=== PATIENT | male | born 1950 | race Caucasian/White ===

== ENCOUNTER 2022-12-03 10:46 | Outpatient (REF) | payer MEDICARE, SELFPAY ==
[2022-12-03 11:36] LABS: Cholesterol* 227 mg/dL (90-199); Glucose* 97 mg/dL (60-115)
[2022-12-03 11:37] LABS: HDL Cholesterol* 74 mg/dL (>=40); LDL Cholesterol Calculated 139 mg/dL (<100); Triglycerides* 69 mg/dL (40-149)
[2022-12-04 19:10] LABS: Sex Hormone Binding Globulin 111 nmol/L (19-76); Testosterone, Adult Male 1020 ng/dL (300-720); Testosterone, Free Calculation 91 pg/mL (47-244); Testosterone, Percentage Free 0.9 % (1.6-2.9)
== END 2022-12-03 10:47 | disposition home or self-care (01) ==
LOC: NPINS 10:46
PROVIDERS: PCP Internal Medicine
DX: N52.9 Male erectile dysfunction, unspecified (principal)
CPT/HCPCS: 80061; 82947; 84270; 84402; 84403

== ENCOUNTER 2022-12-18 12:42 | Emergency (ER) | payer MEDICARE, SELFPAY ==
[2022-12-18 12:47] VITALS: BP 135/76; PULSE 60; RESP 16; TEMP 36.2; O2SAT 99; BMI 24.7
--- NOTE | 2022-12-18 13:24 | ED.NURSE ---
[facility] Epidemiology Unit paged per MD request for guidelines on animal bite by rochelle.
--- NOTE | 2022-12-18 14:15 | ED.NURSE ---
RIG given to
[2022-12-18] MEDS: RABIES IMMUNE GLOBULIN 150 UNIT/ML INJ 1500 UNIT INFILTRATI (14:50)
[2022-12-18 15:05] VITALS: BP 135/76; PULSE 60; RESP 16; TEMP 36.2
--- NOTE | 2022-12-18 15:07 | ED.NURSE ---
injects 2mL of RIG into bite site. Per Dr. Pradhan, remainder 8mL of RIG should be given in divided doses IM. Vaccine and RIG given IM, as ordered. Pt tolerates well. Pt agrees to call clinic to make apts for follow up vaccine administrations for days 3, 7, 14. Calender provided to Pt and reviewed extensively which days are needed for vaccine administrations. Copy of Rx for repeat Rabies vaccines provided to Pt to bring to clinic apts. Copy of Rx scanned into medical record.
--- NOTE | 2022-12-19 00:53 | ED.ANIMALBIT ---
HPI - Animal Bite General Chief Complaint: Animal Bite Stated Complaint: animal bite last week [place] Time Seen by Provider: 12/18/22 12:50 History of Present Illness HPI narrative: 72-year-old man presenting to the emergency department after sustaining a bite to his left index finger by a young lemur in a zoo in [facility]. It sounds as though this is somewhat of a petting zoo where animals were presented to guests. Lemsantino leapt from lap to lap and when landing on Mr. Munoz's lap, bit his finger. There has been no inflammation. No fever, no night sweats. Appears to have healed. Animals appeared to be quite healthy. Vaccinations status unknown. Mr. Munoz has tried to reach the zoo to inquire vaccine status or health of this rochelle but only able to leave voice mails. He presents here on recommendation by family Related Data Home Medications Medication Instructions Recorded Confirmed No Known Home Medications 12/18/22 12/18/22 Allergies Allergy/AdvReac Type Severity Reaction Status Date / Time No Known Drug Allergies Allergy Verified 12/18/22 12:52 Review of Systems Status of ROS: Reports: 6 or more systems reviewed and unremarkable except as noted in History and below PFSH PFS Social History Smoking Status: Never smoker Do you use any of these nicotine containing products: None Second hand tobacco smoke exposure: No How often do you have a drink containing alcohol: monthly or less How many standard drinks containing alcohol do you have on a typical day: 1 or 2 How often do you have six or more drinks on one occasion: Never AUDIT-C Alcohol total score: 1 Non-prescribed substance use: denies use service: No Exam Narrative: Exam Narrative: Pleasant. NAD. Slim. Well tanned. No swelling or inflammatory changes in the skin apparent. Cranial nerves 2-12 intact. Breathing easily. Examination of the left finger the site of the bite shows it to be well healed with opposing daniel on both radial and ulnar side of the finger on the middle phalanx. Scab on the ulnar side. Flexes and extends his finger without any difficulty. Const: Vital Signs, click to edit/add: Vital Signs - 24 hr 12/18/22 12:47 12/18/22 15:05 Temperature 97.1 F L 97.1 F L Pulse Rate [Pulse Oximeter] 60 60 Respiratory Rate 16 16 Blood Pressure [Ri ght Upper Arm] 135/76 135/76 Pulse Oximetry 99 Oxygen Delivery Me thod Room Air Documenting provider has reviewed patient's vital signs: yes Course Vital Signs Vital signs: Initial Vital Signs Temperature 97.1 F L 12/18/22 12:47 Temperature Source Temporal Artery Scan 12/18/22 12:47 Pulse Rate 60 12/18/22 12:47 Pulse Rhythm 12/18/22 12:47 Pulse Strength 3+ Normal 12/18/22 12:47 Respiratory Rate 16 12/18/22 12:47 Blood Pressure 135/76 12/18/22 12:47 Blood Pressure Mean 95 12/18/22 12:47 Blood Pressure Position Sitting 12/18/22 12:47 Pulse Oximetry 99 12/18/22 12:47 Oxygen Delivery Method 12/18/22 12:47 Vital Signs Temperature 97.1 F L 12/18/22 12:47 Pulse Rate 60 12/18/22 12:47 Respiratory Rate 16 12/18/22 12:47 Blood Pressure 135/76 12/18/22 12:47 Pulse Oximetry 99 12/18/22 12:47 Oxygen Delivery Method 12/18/22 12:47 Temperature 97.1 F L 12/18/22 15:05 Pulse Rate 60 12/18/22 15:05 Respiratory Rate 16 12/18/22 15:05 Blood Pressure 135/76 12/18/22 15:05 Pulse Oximetry 99 12/18/22 12:47 Oxygen Delivery Method 12/18/22 12:47 MDM - Animal Bite MDM Narrative Medical decision making narrative: I did try to reach out to the zoo as well. Unable to reach anybody. Did talk to [place] department of Health and recommendations are to proceed with immunoglobulin and rabies vaccine series. Mr. Munoz did have some concerns regarding vaccinations in general preferring a more ?natural? approach. We discussed pros and cons and risks/ consequences of rabies. Offered vaccine information. I discussed also with pharmacist. It appears that we would be unable to guarantee health of this animal at this time so will proceed with immunoglobulin and vaccination series I did inject total of 2 mL in digital block of sorts on the left index finger. Nursing injected else where the weight based dosing See patient departure for more information Discharge Plan Discharge Clinical Impression: Animal bite Patient Disposition: Home, Self-Care Condition: Stable Additional Instructions: Please follow-up for vaccines on days 3, 7, 14. Report fever, increasing headache, shortness of breath, numbness/weakness. Watch lemurs at a distance for now on [employer]. Prescriptions: No Action No Known Home Medications Follow Up/Referrals: Gilmer Portillo MD [Primary Care Provider] - Stand Alone Forms: Mobile [employer] Info Instructions
== END 2022-12-18 14:58 | disposition home or self-care (01) ==
PROVIDERS: Emergency Provider Family Medicine; PCP Internal Medicine
DX: S61.251A Open bite of left index finger without damage to nail, initial encounter (principal); W55.81XA Bitten by other mammals, initial encounter; Z20.3 Contact with and (suspected) exposure to rabies
CPT/HCPCS: 90377; 90471; 90675; 99283; 99284

== ENCOUNTER 2023-08-30 08:04 | Outpatient (CLI) | payer MEDICARE, SELFPAY ==
--- NOTE | 2023-08-30 08:15 | CRLHL7_ITS ---
For Patients: As a result of the Century Cures Act, medical imaging exams and procedure reports are released immediately into your electronic medical record. You may view this report before your referring provider. If you have questions, please contact your health care provider. Indication: SCIATICA LOW BACK PAIN AND LEG NUMBNESS Technique: Noncontrast sagittal and axial T1, T2, and sagittal STIR sequences are provided. Comparison: Radiographs 08/16/2023 Findings: There are 5 lumbar type vertebral bodies. No fractures. Degree of anterolisthesis at L5-S1. No prevertebral or paraspinal edema. No aggressive osseous lesions. The conus medullaris is normal in signal. Few small chronic Schmorl`s nodes at T11-12 through L1-2. Chronic bilateral L5 pars defects. Bilateral renal cysts. Fusion of the right sacroiliac joint. T12-L1: Mild disc bulge. No significant spinal canal stenosis or neural foramen narrowing. L1-2: Disc desiccation. No significant spinal canal stenosis or neural foramen narrowing. L2-3: Disc desiccation. No significant spinal canal stenosis or neural foramen narrowing. L3-4: Circumferential disc bulge with superimposed left paracentral disc extrusion with 1.2 cm inferior migration that results in severe left subarticular recess and lateral recess stenosis and impingement of the traversing left L4 nerve roots. Mild neural foramen narrowing bilaterally. L4-5: Mild posterior disc bulge and disc desiccation. No significant spinal canal stenosis. Mild left neural foramina narrowing. L5-S1: Grade 1 anterolisthesis. Chronic bilateral L5 pars defects. No spinal canal stenosis. Moderate neural foramen narrowing bilaterally. Impression: 1. No acute osseous or ligamentous abnormality. Chronic bilateral L5 pars defects. 2. At L3-4, left paracentral disc extrusion with inferior migration results in severe left subarticular recess and lateral recess stenosis and impingement of the traversing left L4 nerve roots. Mild neural foramen narrowing bilaterally. 3. At L4-5, mild left neural foramen narrowing. 4. At L5-S1, moderate bilateral neural foramen narrowing. Dictated by Jake Baer MD @ 08/30/2023 9:38:03 AM (Electronically Signed)
== END 2023-08-30 08:05 | disposition home or self-care (01) ==
LOC: MRI 08:05
PROVIDERS: PCP Internal Medicine; Visit Provider Internal Medicine
DX: M54.30 Sciatica, unspecified side (principal); M51.26 Other intervertebral disc displacement, lumbar region; R20.0 Anesthesia of skin
CPT/HCPCS: 72148

== ENCOUNTER 2023-09-10 06:48 | Outpatient (CLI) | payer MEDICARE, SELFPAY | END 2023-09-10 06:49 | disposition home or self-care (01) | LOC: INJ CL 06:48 | PROVIDERS: PCP Internal Medicine; Visit Provider Family Medicine | DX: M54.16 Radiculopathy, lumbar region (principal); M51.26 Other intervertebral disc displacement, lumbar region | CPT/HCPCS: 62323; J0702; Q9966 ==